=== PATIENT | female | born 1965 | race Caucasian/White ===

== ENCOUNTER 2017-07-01 08:00 | Outpatient (CLI) | payer OTHER ==
[~2017-07-01 08:00] MED LIST: IBUPROFEN800 MG PO; ORPH100T PO; SYNTHROID75 MCG; TRIBENZOR 40-11 EACH
== END 2017-07-01 08:43 | disposition home or self-care (01) ==
LOC: RAD 08:00
DX: E04.2 Nontoxic multinodular goiter (principal); M54.5 Low back pain; M54.2 Cervicalgia

== ENCOUNTER 2018-05-25 10:40 | Outpatient (CLI) | payer OTHER | END 2018-05-25 10:51 | disposition home or self-care (01) | LOC: RAD 10:40 | DX: J20.8 Acute bronchitis due to other specified organisms (principal) ==

== ENCOUNTER 2019-10-15 14:39 | Outpatient (CLI) | payer OTHER | END 2019-10-15 14:53 | disposition home or self-care (01) | LOC: RAD 14:39 | PROVIDERS: ATTEND Orthopaedic Surgery | DX: M25.561 Pain in right knee (principal) ==

== ENCOUNTER 2019-11-06 14:10 | Outpatient (CLI) | payer OTHER | END 2019-11-06 14:36 | disposition home or self-care (01) | LOC: NUCLEAR 14:10 | PROVIDERS: ATTEND Orthopaedic Surgery | DX: M81.0 Age-related osteoporosis without current pathological fracture (principal) ==

== ENCOUNTER 2019-11-13 06:00 | Outpatient (CLI) | payer OTHER | END 2019-11-13 15:23 | disposition home or self-care (01) | LOC: PPH VACUNA 06:00 | DX: Z23 Encounter for immunization (principal) ==

== ENCOUNTER 2020-02-12 15:32 | Outpatient (CLI) | payer OTHER | END 2020-02-12 18:00 | disposition home or self-care (01) | LOC: PPH VACUNA 15:32 | DX: Z23 Encounter for immunization (principal) ==

== ENCOUNTER 2020-09-03 14:05 | Outpatient (CLI) | payer OTHER | END 2020-09-03 14:16 | disposition home or self-care (01) | LOC: SONOGRAMA 14:05 | PROVIDERS: ATTEND Internal Medicine Sports Medicine | DX: E03.8 Other specified hypothyroidism (principal); E04.1 Nontoxic single thyroid nodule; E04.8 Other specified nontoxic goiter ==

== ENCOUNTER 2020-11-24 08:00 | Outpatient (CLI) | payer OTHER | END 2020-11-24 08:30 | disposition home or self-care (01) | LOC: PPH VACUNA 08:00 | PROVIDERS: ATTEND Emergency Medicine Pediatric Emergency Medicine | DX: Z23 Encounter for immunization (principal) ==

== ENCOUNTER 2020-12-12 12:06 | Outpatient (CLI) | payer OTHER | END 2020-12-12 12:15 | disposition home or self-care (01) | LOC: RAD 12:06 | PROVIDERS: ATTEND Physical Medicine & Rehabilitation Sports Medicine | DX: M79.671 Pain in right foot (principal); M76.71 Peroneal tendinitis, right leg ==

== ENCOUNTER 2021-07-01 08:00 | Outpatient (CLI) | payer OTHER | END 2021-07-01 08:30 | disposition home or self-care (01) | LOC: PPH VACUNA 08:00 | PROVIDERS: ATTEND Emergency Medicine Pediatric Emergency Medicine | DX: Z23 Encounter for immunization (principal) ==

== ENCOUNTER 2021-08-05 09:23 | Emergency (ER) | payer OTHER ==
[~2021-08-05] VITALS: Ht 162.6 cm; Wt 76.2 kg
[2021-08-05] MEDS ORDERED: LOSARTAN-HCTZ1 EAC2 (09:36)
[2021-08-05] MEDS ORDERED: SYNTHROID112 MCG (09:36)
[2021-08-05] MEDS ORDERED: NORVASC5 MG (09:37)
== END 2021-08-05 15:44 | disposition home or self-care (01) ==
LOC: ER 09:23
DX: R00.2 Palpitations (principal); I10 Essential (primary) hypertension; E03.9 Hypothyroidism, unspecified

== ENCOUNTER 2021-11-18 10:35 | Outpatient (CLI) | payer OTHER ==
[~2021-11-18 10:35] MED LIST changes: +LOSARTAN-HCTZ1 EAC2; +NORVASC5 MG; +SYNTHROID112 MCG
== END 2021-11-18 10:40 | disposition home or self-care (01) ==
LOC: PPH VACUNA 10:35
PROVIDERS: ATTEND Emergency Medicine Pediatric Emergency Medicine
DX: Z23 Encounter for immunization (principal)

== ENCOUNTER 2021-12-01 10:19 | Outpatient (CLI) | payer OTHER | END 2021-12-01 10:21 | disposition home or self-care (01) | LOC: NUCLEAR 10:19 | PROVIDERS: ATTEND Internal Medicine Sports Medicine | DX: M85.80 Other specified disorders of bone density and structure, unspecified site (principal) ==

== ENCOUNTER 2022-02-05 09:05 | Outpatient (CLI) | payer OTHER | END 2022-02-05 09:15 | disposition home or self-care (01) | LOC: PPH VACUNA 09:05 | PROVIDERS: ATTEND Emergency Medicine Pediatric Emergency Medicine | DX: Z23 Encounter for immunization (principal) ==

== ENCOUNTER 2022-07-27 11:43 | Outpatient (CLI) | payer OTHER | END 2022-07-27 12:07 | disposition home or self-care (01) | LOC: SONOGRAMA 11:43 | PROVIDERS: ATTEND Physical Medicine & Rehabilitation Sports Medicine | DX: M75.31 Calcific tendinitis of right shoulder (principal); M75.41 Impingement syndrome of right shoulder; M54.51 Vertebrogenic low back pain ==

== ENCOUNTER 2023-12-09 12:57 | Outpatient (CLI) | payer OTHER | END 2023-12-09 13:18 | disposition home or self-care (01) | LOC: NUCLEAR 12:57 | PROVIDERS: ATTEND Internal Medicine Sports Medicine | DX: M85.88 Other specified disorders of bone density and structure, other site (principal); M81.0 Age-related osteoporosis without current pathological fracture ==

== ENCOUNTER 2023-12-20 13:26 | Outpatient (CLI) | payer OTHER | END 2023-12-20 13:46 | disposition home or self-care (01) | LOC: SONOGRAMA 13:26 | PROVIDERS: ATTEND Internal Medicine Sports Medicine | DX: E04.2 Nontoxic multinodular goiter (principal) ==

== ENCOUNTER → 2024-12-28 11:03 | Outpatient (CLI) | payer OTHER | END | disposition home or self-care (01) | LOC: NUCLEAR 11:00 | DX: I73.9 Peripheral vascular disease, unspecified (principal); I87.2 Venous insufficiency (chronic) (peripheral) ==